=== PATIENT | male | born 1940 | race Caucasian/White ===

== ENCOUNTER 2018-05-21 09:53 | Inpatient (IN) | payer BC ==
[2018-05-21 11:11] LABS: #Eosinphils 0.3 thou/uL (0.0-0.7); #Lymphocytes 1.1 thou/uL (1.20-3.40); #Monocytes 1.1 thou/uL (0.11-0.59); #Neutrophils 7.7 thou/uL (1.40-6.50); %Basophils 0.5 % (0.0-1.0); %Eosinophils 3.1 % (0.0-10.0); %Lymphocytes 10.7 % (21.0-51.0); %Monocytes 11.1 % (0.0-10.0); %Neutrophils 74.7 % (42.0-75.0); Hemoglobin 13.9 g/dL (14.0-18.0); Mean Corpuscular HGB CONC 33.5 g/dL (32.0-36.0); Mean Corpuscular Hemoglobin 33.1 pg (27.0-31.0); Mean Corpuscular Volume 98.6 fL (78.0-98.0); Mean Platelet Volume 6.8 fL (7.4-10.4); Platelet Count 393 thou/uL (130-400); RBC Distribution Width 11.8 % (11.5-14.5); Red Blood Cell (RBC) Count 4.22 mill/uL (4.70-6.10); White Blood Cell (WBC) Count 10.3 thou/uL (4.8-10.8)
[2018-05-21 11:34] LABS: ALT (SGPT) 14 U/L (8-55); AST (SGOT) 16 U/L (5-34); Albumin 3.9 g/dL (3.4-4.8); Alkaline Phosphatase 111 U/L (40-150); Anion Gap 14 mmol/L (10-20); BUN (Urea Nitrogen) 17 mg/dL (8.4-25.7); Calc. Creatinine Clearance 0 mL/min (70-130); Calcium 9.8 mg/dL (7.8-10.44); Carbon Dioxide 24 mmol/L (23-31); Chloride 100 mmol/L (98-107); Estimated GFR-MDRD Greater than 90; Globulin 2.8 g/dL (2.4-3.5); Glucose 100 mg/dL (83-110); Potassium 4.1 mmol/L (3.5-5.1); Protein, Total 6.7 g/dL (5.8-8.1); Sodium 134 mmol/L (136-145)
--- NOTE | 2018-05-21 11:49 | ULT ---
ULTRASOUND LEFT LOWER EXTREMITY VENOUS DOPPLER: Date; 05/21/18 HISTORY: Left leg erythema. Edema. COMPARISON: None. TECHNIQUE: Real-time Diaz scale and color Doppler with spectral analysis of the left lower extremity venous sys tem was performed. The common femoral, femoral, proximal portions of greater saphenous and deep femor al veins, as well as the popliteal and posterior tibial veins are interrogated. FINDINGS: Normal flow, augmentation, and compression. IMPRESSION: No deep venous thrombosis. POS: MIREYA
[2018-05-21] MEDS ORDERED: Ondansetron ODT 4 MG TAB SL PRN (12:00)
[2018-05-21] MEDS ORDERED: Ondansetron PF 4 MG/2 ML Vial IVP PRN (12:00)
[2018-05-21] MEDS ORDERED: Acetaminophen 325 MG TAB PO PRN (12:00)
--- NOTE | 2018-05-21 12:03 | RAD ---
LEFT KNEE 4 VIEWS: Date: 05/21/18 HISTORY: Trauma. Pain. COMPARISON: None. FINDINGS: There is a lytic focus within a proximal tibial metadiaphysis. Severe degenerative change of the medi al compartment with a genu varus. Tricompartment osteophytes are present. Large joint effusion. IMPRESSION: 1. Large joint effusion, greater than expected for the amount of degenerative change, may reflect a nondisplaced or an impaction fracture versus internal derangement. 2. Subtle lytic focus within proximal tibial metadiaphysis. Further evaluation with and without cont rast may be beneficial. POS: MIREYA
[2018-05-21] MEDS ORDERED: cefTRIAXone\\ROCEPHIN 2 GM VIAL ONE (12:24)
[2018-05-21] MEDS ORDERED: Clindamycin/D5W 900 mg/50 ml Premix Bag ONE (12:42)
[2018-05-21 14:37] VITALS: BMI 29.6
[2018-05-21] MEDS ORDERED: traMADol HCl 50 MG TAB PO SCH (22:00)
[2018-05-21] MEDS ORDERED: Simvastatin 20 MG TAB PO SCH (22:00)
[2018-05-21] MEDS ORDERED: Zolpidem Tartrate 5 MG TAB PO SCH (22:00)
[2018-05-22] MEDS ORDERED: Enoxaparin Sodium 40 MG/0.4 ML SYRINGE SC SCH (06:00)
[2018-05-22] MEDS ORDERED: Clindamycin/D5W 300 MG/50 ML BAG IVPB SCH (06:00)
[2018-05-22 06:44] LABS: #Basophils 0.1 thou/uL (0.0-0.2); #Eosinphils 0.4 thou/uL (0.0-0.7); #Lymphocytes 1.4 thou/uL (1.20-3.40); #Neutrophils 5.1 thou/uL (1.40-6.50); %Basophils 0.7 % (0.0-1.0); %Eosinophils 5.1 % (0.0-10.0); %Lymphocytes 17.9 % (21.0-51.0); %Monocytes 12.8 % (0.0-10.0); %Neutrophils 63.5 % (42.0-75.0); Hemoglobin 12.7 g/dL (14.0-18.0); Mean Corpuscular HGB CONC 32.2 g/dL (32.0-36.0); Mean Corpuscular Hemoglobin 32.3 pg (27.0-31.0); Mean Platelet Volume 6.6 fL (7.4-10.4); Platelet Count 431 thou/uL (130-400); RBC Distribution Width 11.9 % (11.5-14.5); Red Blood Cell (RBC) Count 3.94 mill/uL (4.70-6.10)
[2018-05-22 07:04] LABS: Anion Gap 9 mmol/L (10-20); BUN (Urea Nitrogen) 21 mg/dL (8.4-25.7); Calc. Creatinine Clearance 99 mL/min (70-130); Calcium 9.5 mg/dL (7.8-10.44); Carbon Dioxide 31 mmol/L (23-31); Chloride 104 mmol/L (98-107); Estimated GFR-MDRD Greater than 90; Glucose 98 mg/dL (83-110); Sodium 140 mmol/L (136-145)
[2018-05-22] MEDS: Folic Acid 1 MG TAB PO SCH (08:31)
[2018-05-22] MEDS: traMADol HCl 50 MG TAB PO SCH ×3 (08:31→20:30)
[2018-05-22] MEDS: Lisinopril/Hydrochlorothiazide 10 mg/12.5 mg Tablet PO SCH (08:31)
[2018-05-22] MEDS: Cyanocobalamin (Vitamin B-12) 1,000 MCG TAB PO SCH (08:31)
--- NOTE | 2018-05-22 10:04 | CON ---
DATE OF CONSULTATION: 05/22/2018 CONSULTING PHYSICIAN: Jorge Ward MD REASON FOR CONSULTATION: Left knee cellulitis. HISTORY OF PRESENT ILLNESS: This is an 78-year-old gentleman, who presented to the Emergency Department last night for increasing redness of the left lower extremity. Upon further workup, the patient reported that he had lost his balance while stepping off a curb on and fell. At that time, he struck his left knee, left hand and face. He states that he has a known history of degenerative arthritis of the left knee and has been advised many years ago that he needs a total knee replacement. He states his knee was sore, but then he started to notice increasing redness over the last 4 days. He states that he does not have any significant pain with movement or walking. He has noticed an area of redness mainly over the front of his knee. He denies any numbness or tingling. He denies any recent fevers. He denies any drainage from any sites on his leg. He does report that he did scrape his leg several times when he fell on . PAST MEDICAL HISTORY: Significant for type 2 diabetes, hypertension, and an unknown cardiac arrhythmia. PAST SURGICAL HISTORY: Significant for cardiac ablation and appendectomy. SOCIAL HISTORY: The patient lives with family including grandson. He denies any smoking, alcohol, or illicit drug use. 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 FAMILY HISTORY: Reviewed and noncontributory. ALLERGIES: THE PATIENT STATES HE IS ALLERGIC TO AN ANTIBIOTIC, BUT HE IS UNSURE OF THE NAME. REVIEW OF SYSTEMS: A 10-point review of systems conducted and otherwise negative except for stated above. PHYSICAL EXAMINATION: VITAL SIGNS: Shows vital signs; temperature 97.7, pulse of 80, respiratory rate of 18, and blood pressure 126/59. GENERAL: The patient is awake and alert. He is in no apparent distress. He is resting comfortably in bed. He is appropriate with exam today. No family is currently at bedside. HEENT: Head, normocephalic and atraumatic. NECK: Supple. Trachea midline. LUNGS: Breathing nonlabored. EXTREMITIES: The left lower extremity was evaluated. There is erythema with some soft tissue swelling prominent over the prepatellar bursa region. This does not extend over the entire knee itself. It does extend distally into the lower leg. The lower leg has been wrapped with Coban and Kerlix. The patient is able to move his toes distally. He is also able to actively range his knee both flexion and extension without any difficulty. The patient has approximately 2+ knee effusion. He is exquisitely tender over the prepatellar bursa region. Remainder of extremity exam otherwise unremarkable. IMAGING SECTION: Radiographs including views of the left knee show evidence of degenerative changes in the left knee. There is evidence of a knee effusion. No acute fractures are visualized. LABORATORY DATA: Lab results reviewed including a CBC show a white blood cell count of 8.0, of note, this was 10.3 upon admission. Hemoglobin 12.7, hematocrit 39.5 , and platelet count of 431. ESR 32. ASSESSMENT: Left knee prepatellar bursitis. PLAN: At this time, I have discussed with the patient at bedside regarding IV antibiotic treatment and likelihood of I and D. We can recheck him in the morning to see if this area has improved; if it has not, we will need to go forward with an I and D of the left prepatellar bursitis to eradicate the infection. This will then be followed by a course of IV antibiotics. The patient seems hesitant toward this. He states he has classes coming up that are resuming in a couple days and he would like to go home. He does understand the importance of this procedure. We will make him n.p.o. at midnight. Risks, benefits, and alternatives discussed with the patient. He is amenable to the plan of care discussed as above. Thank you for this consultation. Job ID: [id number] [facility]
--- NOTE | 2018-05-22 10:19 | PDOC.PN ---
- Subjective Encounter Start Date: 05/22/18 Encounter Start Time: 07:20 -: old records requested/rev Patient seen and examined. No new complaints. No overnight events pt has left knee swelling and pain, - Objective Resuscitation Status - Order Detail: 05/22/18 05:47 Resuscitation Status Routine Resuscitation Status: FULL: Full Resuscitation MAR Reviewed: Yes Vital Signs & Weight: Vital Signs (12 hours) Temp Pulse Resp BP Pulse Ox 05/22/18 07:56 97.7 F 80 18 126/59 L 95 05/22/18 04:03 98.7 F 78 20 102/50 L 93 L Weight Weight 206 lb 6.4 oz I&O: 05/21/18 05/22/18 05/23/18 06:59 06:59 06:59 Intake Total 1000 Balance 1000 Result Diagrams: 05/22/18 06:33 05/22/18 06:33 Radiology Reviewed by me: Yes (knee xray reviewed) Phys Exam - Physical Examination Constitutional: NAD HEENT: PERRLA, moist MMs, sclera anicteric Neck: no JVD, supple Respiratory: no wheezing, no rales, no rhonchi Cardiovascular: RRR, no significant murmur, no rub Gastrointestinal: soft, non-tender, no distention, positive bowel sounds left knee swelling, left leg erythema Neurological: non-focal, normal sensation, moves all 4 limbs Lymphatic: no nodes Psychiatric: normal affect, A&O x 3 Skin: no rash, normal turgor Dx/Plan (1) Prepatellar bursitis of left knee Code(s): M70.42 - PREPATELLAR BURSITIS, LEFT KNEE Status: Acute (2) Cellulitis of left leg Code(s): L03.116 - CELLULITIS OF LEFT LOWER LIMB Status: Acute (3) Knee effusion, left Code(s): M25.462 - EFFUSION, LEFT KNEE Status: Acute (4) Lytic lesion of bone on x-ray Code(s): M89.9 - DISORDER OF BONE, UNSPECIFIED Status: Acute (5) Diabetes type 2, controlled Code(s): E11.9 - TYPE 2 DIABETES MELLITUS WITHOUT COMPLICATIONS Status: Chronic (6) Dyslipidemia Code(s): E78.5 - HYPERLIPIDEMIA, UNSPECIFIED Status: Chronic (7) Hypertension Code(s): I10 - ESSENTIAL (PRIMARY) HYPERTENSION Status: Chronic (8) Macrocytic anemia Code(s): D53.9 - NUTRITIONAL ANEMIA, UNSPECIFIED Status: Chronic - Plan cont current plan of care, continue antibiotics * change to inpt * transfer to orthopedic floor * continue rocephin and clindamycin * will need surgery tomorrow * pain control * wound care after surgery * uric acid is normal * consulted ortho and spoke with them * medication reviewed as below * symptomatic treatment. Review of Systems - Review of Systems Eyes: negative: Pain, Vision Change, Conjunctivae Inflammation, Eyelid Inflammation, Redness, Other ENT: negative: Ear Pain, Ear Discharge, Nose Pain, Nose Discharge, Nose Congestion, Mouth Pain, Mouth Swelling, Throat Pain, Throat Swelling, Other Respiratory: negative: Cough, Dry, Shortness of Breath, Hemoptysis, SOB with Excertion, Pleuritic Pain, Sputum, Wheezing Cardiovascular: negative: chest pain, palpitations, orthopnea, paroxysmal nocturnal dyspnea, edema, light headedness, other Gastrointestinal: negative: Nausea, Vomiting, Abdominal Pain, Diarrhea, Constipation, Melena, Hematochezia, Other Genitourinary: negative: Dysuria, Frequency, Incontinence, Hematuria, Retention , Other Musculoskeletal: Leg Pain. negative: Neck Pain, Shoulder Pain, Arm Pain, Back Pain, Hand Pain, Foot Pain, Other - Medications/Allergies Allergies/Adverse Reactions: Allergies Allergy/AdvReac Type Severity Reaction Status Date / Time ciprofloxacin [From Cipro] Allergy Verified 05/21/18 14:46 latex Allergy Verified 05/21/18 14:46 Medications: Current Medications Clindamycin Phosphate/Dextrose (Cleocin) 900 mg IVPB Q6HR [facility] Last Admin: 05/22/18 06:11 Dose: 900 mg Cyanocobalamin (Vitamin B-12) 1,000 mcg PO DAILY [facility] Last Admin: 05/22/18 08:31 Dose: 1,000 mcg Folic Acid (Folvite) 1 mg PO DAILY [facility] Last Admin: 05/22/18 08:31 Dose: 1 mg Lisinopril/HCTZ (Prinizide 10-12.5) 1 tab PO DAILY [facility] Last Admin: 05/22/18 08:31 Dose: 1 tab Ceftriaxone Sodium 2 gm/ (Sodium Chloride) 100 mls @ 200 mls/hr IVPB 1200 [facility] Simvastatin (Zocor) 10 mg PO HS [facility] Tramadol HCl (Ultram) 50 mg PO TID [facility] Last Admin: 05/22/18 08:31 Dose: 50 mg Zolpidem Tartrate (Ambien) 10 mg PO JULIANA
[2018-05-22] MEDS ORDERED: Sodium Chloride 0.65% Nasal 44 ML BOT EA NARE PRN (11:15)
[2018-05-22] MEDS ORDERED: Senokot S 8.6-50 MG TAB PO PRN (11:15)
[2018-05-22] MEDS ORDERED: hydrALAZINE 20 MG/ML VIAL SLOW IVP PRN (11:15)
[2018-05-22] MEDS ORDERED: Loperamide HCl 2 MG CAP PO PRN (11:15)
[2018-05-22] MEDS ORDERED: Cepastat Lozenges 1 LOZ PO PRN (11:15)
[2018-05-22] MEDS ORDERED: Eucerin (Mineral Oil/Petrolatum,White) 30 gm Jar TOP PRN (11:15)
[2018-05-22] MEDS ORDERED: HYDROcodone/Acetaminophen 5/325 mg Tablet PO PRN (11:15)
[2018-05-22] MEDS ORDERED: Bisacodyl 5 MG TAB PO PRN (11:15)
[2018-05-22] MEDS ORDERED: Artificial Tears 18 DROP/0.9 ML EA EYE PRN (11:15)
[2018-05-22] MEDS ORDERED: Loratadine 10 MG TAB PO PRN (11:15)
[2018-05-22] MEDS ORDERED: Diabetic Tussin 200 MG/10 ML UDCUP PO PRN (11:15)
[2018-05-22] MEDS ORDERED: Calcium Carbonate 500 MG ChewTAB PO PRN (11:15)
[2018-05-22] MEDS ORDERED: Ondansetron ODT 4 MG TAB PO PRN (11:16)
[2018-05-22] MEDS ORDERED: Ondansetron PF 4 MG/2 ML Vial IVP PRN (11:16)
[2018-05-22] MEDS ORDERED: Ketorolac Tromethamine 30 MG/ML VIAL IVP PRN (11:17)
[2018-05-22] MEDS ORDERED: Morphine 2 MG/ML SYRINGE SLOW IVP PRN (11:27)
[2018-05-22] MEDS: Clindamycin/D5W 900 mg/50 ml Premix Bag IVPB SCH ×3 (11:42→23:42)
[2018-05-22] MEDS: cefTRIAXone\\ROCEPHIN 2 GM in Sodium Chloride 0.9% 100 ML IVPB SCH (12:44)
--- NOTE | 2018-05-22 14:41 | HP ---
PRIMARY CARE PHYSICIAN: Out of town. TIME OF SERVICE: 1530 hours. CHIEF COMPLAINT: Left leg swelling. HISTORY OF PRESENT ILLNESS: Mr. Huang is a pleasant 78-year-old white male with history of tachyarrhythmias, diabetes, hypertension, who presented to the emergency department with complaints of left leg swelling and pain. about 10 days prior to presentation, and he got some progressive swelling into his left lower extremity [id number]. It got more painful, red, hot today and so he came into the emergency department for evaluation. Workup there revealed a white count that was normal, labs were normal, but certainly leg looks like it was infected, so we were subsequently called for admission. PAST MEDICAL HISTORY: 1. Tachyarrhythmias. 2. Diabetes mellitus type 2, non-insulin dependent. 3. Hypertension. PAST SURGICAL HISTORY: Includes appendectomy. HOME MEDICATIONS: 1. Lisinopril/hydrochlorothiazide 10/12.5 p.o. daily. 2. Zocor 10 mg p.o. at bedtime. 3. Tramadol 50 mg p.o. t.i.d. p.r.n. 4. Ambien at bedtime. ALLERGIES: CIPRO AND LATEX. FAMILY HISTORY: Negative for clotting or bleeding disorders, no immune dysfunction. SOCIAL HISTORY: Negative habits x3. REVIEW OF SYSTEMS: Negative for all systems except as per HPI. All systems were reviewed. PHYSICAL EXAMINATION: VITAL SIGNS: Temperature 98.7, pulse 78, blood pressure 95/54, respiratory rate 16, and satting 97% on room air. GENERAL: He is awake. He is alert. He is oriented x3. Well-developed, well-nourished white male, appears to be in no distress. HEENT: Normocephalic and atraumatic. Pupils are equal, round, and reactive to light bilaterally. Mucous membranes are moist. No visible lesions and no thrush. NECK: Supple. There is no lymphadenopathy, no JVD, and no thyromegaly. He has normal carotid upstroke. I do not appreciate bruits. LUNGS: Clear. No wheezes, no rales, no rhonchi. He had no prolonged expiratory phase. Good air movement and symmetric chest excursion. CARDIOVASCULAR: He has normal cardiac and regular. Normal S1 and S2. I do not appreciate any significant murmurs. ABDOMEN: Soft, nontender, nondistended. No masses. No organomegaly. EXTREMITIES: No cyanosis, no clubbing. He has edema of the left lower extremity below the knee, approximately 2 to 3+, exquisitely tender, hot, red, and tender to palpation. He does have mycosis and some scrapes above the knee. Otherwise, no other lesions. NEUROLOGIC: Cranial nerves 2 through 12 are grossly intact. He has no focal deficits, normal speech and 5/5 strength in all four extremities. LABORATORY DATA: Sodium 134, potassium 4.1, chloride 100, bicarb is 24, BUN 17, creatinine 0.78, glucose 100, and calcium is 9.8. LFTs within normal limits. CBC showed white count of 10.3, hemoglobin is 13.9, hematocrit is 41.6, platelet count is . CRP elevated at 4.18 and sedimentation rate slightly elevated at 32. IMAGING STUDIES: Reviewed. ASSESSMENT AND PLAN: 1. Left lower extremity cellulitis. It appears to be streptococcal. We placed him on clindamycin for 72 hours plus Rocephin daily. I will elevate and depress the leg and re-evaluate in the morning. The patient is very anxious about wanting to go home. If his pain is well controlled, his morning labs look good and he has tolerated the antibiotic, could likely be switched to oral Keflex 500 mg p.o. q.i.d. plus clindamycin 300 mg t.i.d. to finish out his 72-hour course. The Keflex was continued for 10 to 14 days. 2. Diabetes mellitus type 2, but has been placed on diabetic diet. He is not currently on any medicines for his diabetes. 3. Hypertension. He is on medications. History of tachyarrhythmias. [facility] Job ID: [id number]
[2018-05-22] MEDS: Zolpidem Tartrate 5 MG TAB PO SCH (20:30)
[2018-05-22] MEDS: Simvastatin 20 MG TAB PO SCH (20:32)
[2018-05-23] MEDS: Clindamycin/D5W 900 mg/50 ml Premix Bag IVPB SCH ×4 (06:13→23:48)
[2018-05-23 07:30] LABS: #Basophils 0.1 thou/uL (0.0-0.2); #Eosinphils 0.5 thou/uL (0.0-0.7); #Lymphocytes 1.1 thou/uL (1.20-3.40); #Monocytes 0.9 thou/uL (0.11-0.59); #Neutrophils 4.9 thou/uL (1.40-6.50); %Eosinophils 6.6 % (0.0-10.0); %Lymphocytes 14.7 % (21.0-51.0); %Monocytes 11.6 % (0.0-10.0); Hemoglobin 13.2 g/dL (14.0-18.0); Mean Corpuscular HGB CONC 33.6 g/dL (32.0-36.0); Mean Corpuscular Hemoglobin 33.4 pg (27.0-31.0); Mean Corpuscular Volume 99.4 fL (78.0-98.0); Mean Platelet Volume 6.8 fL (7.4-10.4); Platelet Count 419 thou/uL (130-400); RBC Distribution Width 11.8 % (11.5-14.5); Red Blood Cell (RBC) Count 3.94 mill/uL (4.70-6.10); White Blood Cell (WBC) Count 7.4 thou/uL (4.8-10.8)
[2018-05-23 07:42] LABS: Anion Gap 13 mmol/L (10-20); BUN (Urea Nitrogen) 15 mg/dL (8.4-25.7); Calc. Creatinine Clearance 99 mL/min (70-130); Calcium 9.5 mg/dL (7.8-10.44); Carbon Dioxide 27 mmol/L (23-31); Chloride 102 mmol/L (98-107); Estimated GFR-MDRD Greater than 90; Glucose 103 mg/dL (83-110); Sodium 138 mmol/L (136-145)
[2018-05-23] MEDS: Saccharomyces boulardii 250 MG CAP PO SCH (09:40)
[2018-05-23] MEDS: Cyanocobalamin (Vitamin B-12) 1,000 MCG TAB PO SCH (09:40)
[2018-05-23] MEDS: traMADol HCl 50 MG TAB PO SCH ×3 (09:41→21:23)
[2018-05-23] MEDS: Folic Acid 1 MG TAB PO SCH (09:41)
--- NOTE | 2018-05-23 11:11 | PDOC.PN ---
- Subjective Encounter Start Date: 05/23/18 Encounter Start Time: 08:20 Patient seen and examined. No new complaints. No overnight events - Objective Resuscitation Status - Order Detail: 05/22/18 05:47 Resuscitation Status Routine Resuscitation Status: FULL: Full Resuscitation MAR Reviewed: Yes Vital Signs & Weight: Vital Signs (12 hours) Temp Pulse Resp BP Pulse Ox 05/23/18 08:00 98.0 F 68 20 103/63 94 L 05/23/18 03:57 98.2 F 70 18 100/63 94 L 05/22/18 23:49 98.3 F 65 18 97/54 L 96 Weight Weight 206 lb 6.4 oz I&O: 05/22/18 05/23/18 05/24/18 06:59 06:59 06:59 Intake Total 1000 50 Balance 1000 50 Result Diagrams: 05/23/18 07:01 05/23/18 07:01 Phys Exam - Physical Examination Constitutional: NAD HEENT: PERRLA, moist MMs, sclera anicteric Neck: no JVD, supple Respiratory: no wheezing, no rales, no rhonchi Cardiovascular: RRR, no significant murmur, no rub Gastrointestinal: soft, non-tender, no distention, positive bowel sounds left leg cellulitis improving Neurological: non-focal, normal sensation, moves all 4 limbs Lymphatic: no nodes Psychiatric: normal affect, A&O x 3 Skin: no rash, normal turgor Dx/Plan (1) Prepatellar bursitis of left knee Code(s): M70.42 - PREPATELLAR BURSITIS, LEFT KNEE Status: Acute (2) Cellulitis of left leg Code(s): L03.116 - CELLULITIS OF LEFT LOWER LIMB Status: Acute (3) Knee effusion, left Code(s): M25.462 - EFFUSION, LEFT KNEE Status: Acute (4) Lytic lesion of bone on x-ray Code(s): M89.9 - DISORDER OF BONE, UNSPECIFIED Status: Acute (5) Diabetes type 2, controlled Code(s): E11.9 - TYPE 2 DIABETES MELLITUS WITHOUT COMPLICATIONS Status: Chronic (6) Dyslipidemia Code(s): E78.5 - HYPERLIPIDEMIA, UNSPECIFIED Status: Chronic (7) Hypertension Code(s): I10 - ESSENTIAL (PRIMARY) HYPERTENSION Status: Chronic (8) Macrocytic anemia Code(s): D53.9 - NUTRITIONAL ANEMIA, UNSPECIFIED Status: Chronic - Plan cont current plan of care, continue antibiotics * with iv antibiotic, pt has improvement, at this point as per ortho will hold on surgery, will continue current iv antibiotics and follow culture * medication reviewed as below * symptomatic treatment * pain controlled * discussed with ortho. Review of Systems - Review of Systems Eyes: negative: Pain, Vision Change, Conjunctivae Inflammation, Eyelid Inflammation, Redness, Other Respiratory: negative: Cough, Dry, Shortness of Breath, Hemoptysis, SOB with Excertion, Pleuritic Pain, Sputum, Wheezing Cardiovascular: negative: chest pain, palpitations, orthopnea, paroxysmal nocturnal dyspnea, edema, light headedness, other Gastrointestinal: negative: Nausea, Vomiting, Abdominal Pain, Diarrhea, Constipation, Melena, Hematochezia, Other Genitourinary: negative: Dysuria, Frequency, Incontinence, Hematuria, Retention , Other Musculoskeletal: Leg Pain. negative: Neck Pain, Shoulder Pain, Arm Pain, Back Pain, Hand Pain, Foot Pain, Other - Medications/Allergies Allergies/Adverse Reactions: Allergies Allergy/AdvReac Type Severity Reaction Status Date / Time ciprofloxacin [From Cipro] Allergy Verified 05/21/18 14:46 latex Allergy Verified 05/21/18 14:46 Medications: Current Medications Hydrocodone Bitart/Acetaminophen ([place] 5/325) 1 tab PO Q4H PRN PRN Reason: Moderate Pain (4-6) Artificial Tears (Tears Naturale) 2 drop EA EYE PRN PRN PRN Reason: Dry Eyes Bisacodyl (Dulcolax) 10 mg PO DAILYPRN PRN PRN Reason: Constipation Calcium Carbonate (Tums) 1,000 mg PO Q4H PRN PRN Reason: Heartburn or Indigestion Clindamycin Phosphate/Dextrose (Cleocin) 900 mg IVPB Q6HR [facility] Last Admin: 05/23/18 06:13 Dose: 900 mg Cyanocobalamin (Vitamin B-12) 1,000 mcg PO DAILY [facility] Last Admin: 05/23/18 09:40 Dose: 1,000 mcg Folic Acid (Folvite) 1 mg PO DAILY [facility] Last Admin: 05/23/18 09:41 Dose: 1 mg Guaifenesin (Robitussin Sf) 200 mg PO Q4H PRN PRN Reason: Cough Lisinopril/HCTZ (Prinizide 10-12.5) 1 tab PO DAILY [facility] Last Admin: 05/22/18 08:31 Dose: 1 tab Hydralazine HCl (Apresoline) 10 mg SLOW IVP Q4H PRN PRN Reason: SBP > 180 and HR < 70 Ceftriaxone Sodium 2 gm/ (Sodium Chloride) 100 mls @ 200 mls/hr IVPB 1200 [facility] Last Admin: 05/22/18 12:44 Dose: 100 mls Ketorolac Tromethamine (Toradol) 15 mg IVP Q6H PRN PRN Reason: Mild-Moderate Pain (1-5) Stop: 05/27/18 11:18 Loperamide HCl (Imodium) 2 mg PO PRN PRN PRN Reason: Diarrhea/Loose Stools Loratadine (Claritin) 10 mg PO DAILYPRN PRN PRN Reason: Sinus Symptoms Mineral Oil/White Petrolatum (Eucerin Cream) 0 gm TOP BIDPRN PRN PRN Reason: Dry Skin Morphine Sulfate (Morphine) 2 mg SLOW IVP Q4H PRN PRN Reason: BREAKTHROUGH OR SEVERE PAIN Ondansetron HCl (Zofran Odt) 4 mg PO Q6H PRN PRN Reason: Nausea/Vomiting Ondansetron HCl (Zofran) 4 mg IVP Q6H PRN PRN Reason: Nausea/Vomiting Saccharomyces Boulardii (Florastor) 250 mg PO DAILY [facility] Last Admin: 05/23/18 09:40 Dose: 250 mg Senna/Docusate Sodium (Senokot S) 2 tab PO BID PRN PRN Reason: Constipation Simvastatin (Zocor) 10 mg PO [facility] Last Admin: 05/22/18 20:32 Dose: 10 mg Sodium Chloride ([place] Nasal [place] 0.65%) 0 ml EA NARE QIDPRN PRN PRN Reason: Nasal Congestion Throat Lozenges (Cepastat Lozenges) 1 mallorie PO Q2H PRN PRN Reason: Sore Throat Tramadol HCl (Ultram) 50 mg PO TID [facility] Last Admin: 05/23/18 09:41 Dose: 50 mg Zolpidem Tartrate (Ambien) 10 mg PO [facility] Last Admin: 05/22/18 20:30 Dose: 10 mg
[2018-05-23] MEDS: Lisinopril/Hydrochlorothiazide 10 mg/12.5 mg Tablet PO SCH (12:50)
[2018-05-23] MEDS: cefTRIAXone\\ROCEPHIN 2 GM in Sodium Chloride 0.9% 100 ML IVPB SCH (13:25)
[2018-05-23] MEDS: Simvastatin 20 MG TAB PO SCH (21:22)
[2018-05-23] MEDS: Zolpidem Tartrate 5 MG TAB PO SCH (21:22)
[2018-05-24] MEDS: Clindamycin/D5W 900 mg/50 ml Premix Bag IVPB SCH ×4 (05:14→23:19)
[2018-05-24] MEDS: Folic Acid 1 MG TAB PO SCH (09:06)
[2018-05-24] MEDS: traMADol HCl 50 MG TAB PO SCH ×3 (09:06→20:17)
[2018-05-24] MEDS: Cyanocobalamin (Vitamin B-12) 1,000 MCG TAB PO SCH (09:07)
[2018-05-24] MEDS: Saccharomyces boulardii 250 MG CAP PO SCH (09:07)
[2018-05-24] MEDS: Lisinopril/Hydrochlorothiazide 10 mg/12.5 mg Tablet PO SCH (11:00)
[2018-05-24] MEDS: cefTRIAXone\\ROCEPHIN 2 GM in Sodium Chloride 0.9% 100 ML IVPB SCH (11:35)
--- NOTE | 2018-05-24 13:28 | PDOC.PN ---
- Subjective Encounter Start Date: 05/24/18 Encounter Start Time: 08:45 Patient seen and examined. No new complaints. No overnight events pt still has left leg redness and swelling around left knee, no significant improvement - Objective Resuscitation Status - Order Detail: 05/22/18 05:47 Resuscitation Status Routine Resuscitation Status: FULL: Full Resuscitation MAR Reviewed: Yes Vital Signs & Weight: Vital Signs (12 hours) Temp Pulse Resp BP BP Pulse Ox 05/24/18 12:00 98.0 F 68 16 99/59 L 94 L 05/24/18 11:00 72 119/73 05/24/18 08:00 97.9 F 72 18 119/73 96 05/24/18 04:50 98.5 F 65 16 101/58 L 95 Weight Weight 206 lb 6.4 oz I&O: 05/23/18 05/24/18 05/25/18 06:59 06:59 06:59 Intake Total 50 Balance 50 Result Diagrams: 05/23/18 07:01 05/23/18 07:01 Phys Exam - Physical Examination Constitutional: NAD HEENT: PERRLA, moist MMs, sclera anicteric Neck: no JVD, supple Respiratory: no wheezing, no rales, no rhonchi Cardiovascular: RRR, no significant murmur, no rub Gastrointestinal: soft, non-tender, no distention, positive bowel sounds left knee swelling and cellulitis remained same Neurological: non-focal, normal sensation, moves all 4 limbs Lymphatic: no nodes Psychiatric: normal affect, A&O x 3 Skin: no rash, normal turgor Dx/Plan (1) Prepatellar bursitis of left knee Code(s): M70.42 - PREPATELLAR BURSITIS, LEFT KNEE Status: Acute (2) Cellulitis of left leg Code(s): L03.116 - CELLULITIS OF LEFT LOWER LIMB Status: Acute (3) Knee effusion, left Code(s): M25.462 - EFFUSION, LEFT KNEE Status: Acute (4) Lytic lesion of bone on x-ray Code(s): M89.9 - DISORDER OF BONE, UNSPECIFIED Status: Acute (5) Diabetes type 2, controlled Code(s): E11.9 - TYPE 2 DIABETES MELLITUS WITHOUT COMPLICATIONS Status: Chronic (6) Dyslipidemia Code(s): E78.5 - HYPERLIPIDEMIA, UNSPECIFIED Status: Chronic (7) Hypertension Code(s): I10 - ESSENTIAL (PRIMARY) HYPERTENSION Status: Chronic (8) Macrocytic anemia Code(s): D53.9 - NUTRITIONAL ANEMIA, UNSPECIFIED Status: Chronic - Plan cont current plan of care, continue antibiotics * currently on empiric antibiotic treatment, so far not significant response * without surgical intervention, pt and me concerned about another admission in near future if not improvement * will ask ortho to evaluate for any need of surgery * pain controlled * medication reviewed as below * symptomatic treatment. Review of Systems - Review of Systems Constitutional: negative: fever, chills, sweats, weakness, malaise, other ENT: negative: Ear Pain, Ear Discharge, Nose Pain, Nose Discharge, Nose Congestion, Mouth Pain, Mouth Swelling, Throat Pain, Throat Swelling, Other Respiratory: negative: Cough, Dry, Shortness of Breath, Hemoptysis, SOB with Excertion, Pleuritic Pain, Sputum, Wheezing Cardiovascular: negative: chest pain, palpitations, orthopnea, paroxysmal nocturnal dyspnea, edema, light headedness, other Gastrointestinal: negative: Nausea, Vomiting, Abdominal Pain, Diarrhea, Constipation, Melena, Hematochezia, Other Genitourinary: negative: Dysuria, Frequency, Incontinence, Hematuria, Retention , Other Musculoskeletal: Leg Pain. negative: Neck Pain, Shoulder Pain, Arm Pain, Back Pain, Hand Pain, Foot Pain, Other - Medications/Allergies Allergies/Adverse Reactions: Allergies Allergy/AdvReac Type Severity Reaction Status Date / Time ciprofloxacin [From Cipro] Allergy Verified 05/21/18 14:46 latex Allergy Verified 05/21/18 14:46 Medications: Current Medications Hydrocodone Bitart/Acetaminophen ([place] 5/325) 1 tab PO Q4H PRN PRN Reason: Moderate Pain (4-6) Artificial Tears (Tears Naturale) 2 drop EA EYE PRN PRN PRN Reason: Dry Eyes Bisacodyl (Dulcolax) 10 mg PO DAILYPRN PRN PRN Reason: Constipation Calcium Carbonate (Tums) 1,000 mg PO Q4H PRN PRN Reason: Heartburn or Indigestion Clindamycin Phosphate/Dextrose (Cleocin) 900 mg IVPB Q6HR [facility] Last Admin: 05/24/18 12:41 Dose: 900 mg Cyanocobalamin (Vitamin B-12) 1,000 mcg PO DAILY [facility] Last Admin: 05/24/18 09:07 Dose: 1,000 mcg Folic Acid (Folvite) 1 mg PO DAILY [facility] Last Admin: 05/24/18 09:06 Dose: 1 mg Guaifenesin (Robitussin Sf) 200 mg PO Q4H PRN PRN Reason: Cough Lisinopril/HCTZ (Prinizide 10-12.5) 1 tab PO DAILY [facility] Last Admin: 05/24/18 11:00 Dose: 1 tab Hydralazine HCl (Apresoline) 10 mg SLOW IVP Q4H PRN PRN Reason: SBP > 180 and HR < 70 Ceftriaxone Sodium 2 gm/ (Sodium Chloride) 100 mls @ 200 mls/hr IVPB 1200 [facility] Last Admin: 05/24/18 11:35 Dose: 100 mls Ketorolac Tromethamine (Toradol) 15 mg IVP Q6H PRN PRN Reason: Mild-Moderate Pain (1-5) Stop: 05/27/18 11:18 Loperamide HCl (Imodium) 2 mg PO PRN PRN PRN Reason: Diarrhea/Loose Stools Loratadine (Claritin) 10 mg PO DAILYPRN PRN PRN Reason: Sinus Symptoms Mineral Oil/White Petrolatum (Eucerin Cream) 0 gm TOP BIDPRN PRN PRN Reason: Dry Skin Morphine Sulfate (Morphine) 2 mg SLOW IVP Q4H PRN PRN Reason: BREAKTHROUGH OR SEVERE PAIN Ondansetron HCl (Zofran Odt) 4 mg PO Q6H PRN PRN Reason: Nausea/Vomiting Ondansetron HCl (Zofran) 4 mg IVP Q6H PRN PRN Reason: Nausea/Vomiting Saccharomyces Boulardii (Florastor) 250 mg PO DAILY [facility] Last Admin: 05/24/18 09:07 Dose: 250 mg Senna/Docusate Sodium (Senokot S) 2 tab PO BID PRN PRN Reason: Constipation Simvastatin (Zocor) 10 mg PO HS [facility] Last Admin: 05/23/18 21:22 Dose: 10 mg Sodium Chloride ([place] Nasal [place] 0.65%) 0 ml EA NARE QIDPRN PRN PRN Reason: Nasal Congestion Throat Lozenges (Cepastat Lozenges) 1 mallorie PO Q2H PRN PRN Reason: Sore Throat Tramadol HCl (Ultram) 50 mg PO TID [facility] Last Admin: 05/24/18 09:06 Dose: 50 mg Zolpidem Tartrate (Ambien) 10 mg PO [facility] Last Admin: 05/23/18 21:22 Dose: 10 mg
[2018-05-24] MEDS: Simvastatin 20 MG TAB PO SCH (20:16)
[2018-05-24] MEDS: Zolpidem Tartrate 5 MG TAB PO SCH (21:44)
[2018-05-25] MEDS: Clindamycin/D5W 900 mg/50 ml Premix Bag IVPB SCH ×4 (05:02→23:39)
[2018-05-25] MEDS: Cyanocobalamin (Vitamin B-12) 1,000 MCG TAB PO SCH (08:43)
[2018-05-25] MEDS: Saccharomyces boulardii 250 MG CAP PO SCH (08:44)
[2018-05-25] MEDS: Folic Acid 1 MG TAB PO SCH (08:44)
[2018-05-25] MEDS: traMADol HCl 50 MG TAB PO SCH ×3 (08:44→21:45)
[2018-05-25] MEDS: Lisinopril/Hydrochlorothiazide 10 mg/12.5 mg Tablet PO SCH (08:47)
[2018-05-25] MEDS: cefTRIAXone\\ROCEPHIN 2 GM in Sodium Chloride 0.9% 100 ML IVPB SCH (11:41)
--- NOTE | 2018-05-25 13:36 | PDOC.PN ---
- Subjective Encounter Start Date: 05/25/18 Encounter Start Time: 08:30 Patient seen and examined. No new complaints. No overnight events - Objective Resuscitation Status - Order Detail: 05/22/18 05:47 Resuscitation Status Routine Resuscitation Status: FULL: Full Resuscitation MAR Reviewed: Yes Vital Signs & Weight: Vital Signs (12 hours) Temp Pulse Resp BP Pulse Ox 05/25/18 11:08 97.3 F L 92 18 108/66 97 05/25/18 08:47 73 05/25/18 07:35 98.2 F 73 18 126/72 94 L 05/25/18 04:40 97.9 F 55 L 20 100/51 L 95 Weight Weight 206 lb 6.4 oz I&O: 05/24/18 05/25/18 05/26/18 06:59 06:59 06:59 Intake Total 1050 360 Balance 1050 360 Result Diagrams: 05/23/18 07:01 05/23/18 07:01 Phys Exam - Physical Examination Constitutional: NAD HEENT: PERRLA, moist MMs, sclera anicteric Neck: no JVD, supple Respiratory: no wheezing, no rales, no rhonchi Cardiovascular: RRR, no significant murmur, no rub Gastrointestinal: soft, non-tender, no distention, positive bowel sounds left leg cellulitis, bursitis Neurological: non-focal, normal sensation, moves all 4 limbs Lymphatic: no nodes Psychiatric: normal affect, A&O x 3 Skin: no rash, normal turgor Dx/Plan (1) Prepatellar bursitis of left knee Code(s): M70.42 - PREPATELLAR BURSITIS, LEFT KNEE Status: Acute (2) Cellulitis of left leg Code(s): L03.116 - CELLULITIS OF LEFT LOWER LIMB Status: Acute (3) Knee effusion, left Code(s): M25.462 - EFFUSION, LEFT KNEE Status: Acute (4) Lytic lesion of bone on x-ray Code(s): M89.9 - DISORDER OF BONE, UNSPECIFIED Status: Acute (5) Diabetes type 2, controlled Code(s): E11.9 - TYPE 2 DIABETES MELLITUS WITHOUT COMPLICATIONS Status: Chronic (6) Dyslipidemia Code(s): E78.5 - HYPERLIPIDEMIA, UNSPECIFIED Status: Chronic (7) Hypertension Code(s): I10 - ESSENTIAL (PRIMARY) HYPERTENSION Status: Chronic (8) Macrocytic anemia Code(s): D53.9 - NUTRITIONAL ANEMIA, UNSPECIFIED Status: Chronic - Plan cont current plan of care, continue antibiotics * ortho to decide today if any need for I & D * continue current iv antibiotics * medication reviewed as below * symptomatic treatment. Review of Systems - Review of Systems ENT: negative: Ear Pain, Ear Discharge, Nose Pain, Nose Discharge, Nose Congestion, Mouth Pain, Mouth Swelling, Throat Pain, Throat Swelling, Other Respiratory: negative: Cough, Dry, Shortness of Breath, Hemoptysis, SOB with Excertion, Pleuritic Pain, Sputum, Wheezing Cardiovascular: negative: chest pain, palpitations, orthopnea, paroxysmal nocturnal dyspnea, edema, light headedness, other Gastrointestinal: negative: Nausea, Vomiting, Abdominal Pain, Diarrhea, Constipation, Melena, Hematochezia, Other Genitourinary: negative: Dysuria, Frequency, Incontinence, Hematuria, Retention , Other Musculoskeletal: negative: Neck Pain, Shoulder Pain, Arm Pain, Back Pain, Hand Pain, Leg Pain, Foot Pain, Other Skin: negative: Rash, Lesions, Pasquale, Bruising, Other - Medications/Allergies Allergies/Adverse Reactions: Allergies Allergy/AdvReac Type Severity Reaction Status Date / Time ciprofloxacin [From Cipro] Allergy Verified 05/21/18 14:46 latex Allergy Verified 05/21/18 14:46 Medications: Current Medications Hydrocodone Bitart/Acetaminophen ([place] 5/325) 1 tab PO Q4H PRN PRN Reason: Moderate Pain (4-6) Artificial Tears (Tears Naturale) 2 drop EA EYE PRN PRN PRN Reason: Dry Eyes Bisacodyl (Dulcolax) 10 mg PO DAILYPRN PRN PRN Reason: Constipation Calcium Carbonate (Tums) 1,000 mg PO Q4H PRN PRN Reason: Heartburn or Indigestion Clindamycin Phosphate/Dextrose (Cleocin) 900 mg IVPB Q6HR [facility] Last Admin: 05/25/18 11:49 Dose: 900 mg Cyanocobalamin (Vitamin B-12) 1,000 mcg PO DAILY [facility] Last Admin: 05/25/18 08:43 Dose: 1,000 mcg Folic Acid (Folvite) 1 mg PO DAILY [facility] Last Admin: 05/25/18 08:44 Dose: 1 mg Guaifenesin (Robitussin Sf) 200 mg PO Q4H PRN PRN Reason: Cough Lisinopril/HCTZ (Prinizide 10-12.5) 1 tab PO DAILY [facility] Last Admin: 05/25/18 08:47 Dose: 1 tab Hydralazine HCl (Apresoline) 10 mg SLOW IVP Q4H PRN PRN Reason: SBP > 180 and HR < 70 Ceftriaxone Sodium 2 gm/ (Sodium Chloride) 100 mls @ 200 mls/hr IVPB 1200 [facility] Last Admin: 05/25/18 11:41 Dose: 100 mls Ketorolac Tromethamine (Toradol) 15 mg IVP Q6H PRN PRN Reason: Mild-Moderate Pain (1-5) Stop: 05/27/18 11:18 Loperamide HCl (Imodium) 2 mg PO PRN PRN PRN Reason: Diarrhea/Loose Stools Loratadine (Claritin) 10 mg PO DAILYPRN PRN PRN Reason: Sinus Symptoms Mineral Oil/White Petrolatum (Eucerin Cream) 0 gm TOP BIDPRN PRN PRN Reason: Dry Skin Morphine Sulfate (Morphine) 2 mg SLOW IVP Q4H PRN PRN Reason: BREAKTHROUGH OR SEVERE PAIN Ondansetron HCl (Zofran Odt) 4 mg PO Q6H PRN PRN Reason: Nausea/Vomiting Ondansetron HCl (Zofran) 4 mg IVP Q6H PRN PRN Reason: Nausea/Vomiting Saccharomyces Boulardii (Florastor) 250 mg PO DAILY [facility] Last Admin: 05/25/18 08:44 Dose: 250 mg Senna/Docusate Sodium (Senokot S) 2 tab PO BID PRN PRN Reason: Constipation Simvastatin (Zocor) 10 mg PO [facility] Last Admin: 05/24/18 20:16 Dose: 10 mg Sodium Chloride ([place] Nasal [place] 0.65%) 0 ml EA NARE QIDPRN PRN PRN Reason: Nasal Congestion Throat Lozenges (Cepastat Lozenges) 1 mallorie PO Q2H PRN PRN Reason: Sore Throat Tramadol HCl (Ultram) 50 mg PO TID [facility] Last Admin: 05/25/18 08:44 Dose: 50 mg Zolpidem Tartrate (Ambien) 10 mg PO [facility] Last Admin: 05/24/18 21:44 Dose: 10 mg
[2018-05-25] MEDS: Simvastatin 20 MG TAB PO SCH (21:43)
[2018-05-25] MEDS: Zolpidem Tartrate 5 MG TAB PO SCH (23:54)
[2018-05-26] MEDS: Clindamycin/D5W 900 mg/50 ml Premix Bag IVPB SCH (06:27)
[2018-05-26] MEDS: traMADol HCl 50 MG TAB PO SCH (08:22)
[2018-05-26] MEDS: Cyanocobalamin (Vitamin B-12) 1,000 MCG TAB PO SCH (08:23)
[2018-05-26] MEDS: Folic Acid 1 MG TAB PO SCH (08:23)
[2018-05-26] MEDS: Saccharomyces boulardii 250 MG CAP PO SCH (08:23)
[2018-05-26 08:31] VITALS: BP 101/57; TEMP 98.2
[2018-05-26] MEDS: Lisinopril/Hydrochlorothiazide 10 mg/12.5 mg Tablet PO SCH (08:34)
--- NOTE | 2018-05-26 12:26 | DIS ---
DATE OF ADMISSION: 05/21/2018 DATE OF DISCHARGE: 05/26/2018 PRIMARY CARE PHYSICIAN: Dr. Jay Cespedes. DISCHARGE DISPOSITION: Home. PRIMARY DISCHARGE DIAGNOSES: 1. Left lower extremity cellulitis. 2. Left knee effusion. 3. Infrapatellar bursitis of left knee/hematoma. 4. Lytic lesion of the bone on x-ray. SECONDARY DISCHARGE DIAGNOSES: 1. Macrocytic anemia. 2. Hypertension. 3. Dyslipidemia. 4. Diabetes type 2. PRIMARY PROCEDURE/OPERATION: None. RADIOLOGICAL INVESTIGATION: Ultrasound negative for any DVT. Knee x-ray showed left knee effusion. SIGNIFICANT LABORATORY DATA: WBC 7.4, hemoglobin 13.2, and platelet of 419. Sodium 138, creatinine 0.79, calcium 9.5. CRP 4.18. LFT normal. DISCHARGE MEDICATIONS: 1. Keflex 500 mg p.o. t.i.d. for 10 days. 2. Doxycycline 100 mg b.i.d. for 10 days. 3. Florastor 250 mg p.o. daily for 10 days. 4. Folic acid 1 mg daily. 5. Vitamin B12 of 1000 mcg p.o. daily. 6. Ambien 10 mg at bedtime. 7. Tramadol 50 mg t.i.d. p.r.n. 8. Zocor 10 mg p.o. at bedtime. 9. Lisinopril with hydrochlorothiazide 1 tablet p.o. daily. CONTRAINDICATION: None. CODE STATUS: Full code. INPATIENT VICE PRESIDENT OF ADVERTISING: Dr. Ward. Orthopedic physician was following while in hospital. TEST RESULTS PENDING ON DISCHARGE: None. ALLERGIES: CIPRO AND LATEX. DISCHARGE PLAN: Posthospital, the patient will follow up with Dr. Jay Cespedes in one week. The patient will make appointment with Dr. Ward in one week. HOSPITAL COURSE: An 78-year-old male, who had mechanical fall and subsequently, he had a knee swelling and he started having erythema, swelling, and tenderness in left lower extremity. He was diagnosed with cellulitis. He had ultrasound done, which was negative for any DVT. Knee x-ray showed knee effusion. He also had infrapatellar collection of fluid and that is why, we consulted Orthopedic Physician. Orthopedic was thinking that this patient most likely has hematoma and he does not need any surgery. While in hospital, we treated him with Rocephin and clindamycin. On discharge, we changed to Keflex and doxycycline. The patient does have mild improvement in his erythema. At this point, the patient does not have any tenderness. He is able to walk by himself and he is stable. We advised him to follow up with orthopedic physician for further decision. At this point, the patient wants to go home. The patient was seen and examined at bedside today. REVIEW OF SYSTEMS: All review of systems reviewed with him and negative currently. PHYSICAL EXAMINATION: VITAL SIGNS: Temperature 98.2, pulse 82, respiratory rate 18, saturation 97% on room air, blood pressure 101/57, weight 206 pounds. GENERAL: The patient is currently alert, awake, in no obvious acute distress. HEENT: Head; normocephalic and atraumatic. Eyes; pupils are round, reactive to light. Extraocular muscle intact. ENT, oropharynx within normal limits. Moist mucous membranes. No oral lesion. No pharyngeal erythema. No exudate. NECK: Supple. No JVD. No thyromegaly. No carotid bruit. No jugular venous distention. LUNGS: Clear to auscultation without any rhonchi or rales. CARDIAC: S1 and S2 regular without any murmur. ABDOMEN: Soft and benign. EXTREMITIES: No edema. Left lower extremity cellulitis, improving. The patient is medically stable for discharge. All new medication prescription sent to his pharmacy. Job ID: [id number]
== END 2018-05-26 09:10 | disposition home or self-care (01) | DRG 603 ==
LOC: ERS 09:53 → OBSVTOIN 12:10 → 2SW 12:10 → SURG B 05-22 14:16
PROVIDERS: ADMIT Internal Medicine Infectious Disease; ATTEND Internal Medicine Infectious Disease
DX: L03.116 Cellulitis of left lower limb (principal); B95.5 Unspecified streptococcus as the cause of diseases classified elsewhere; M70.42 Prepatellar bursitis, left knee; M25.462 Effusion, left knee; E11.9 Type 2 diabetes mellitus without complications; I10 Essential (primary) hypertension; E78.5 Hyperlipidemia, unspecified; Z79.899 Other long term (current) drug therapy; Z91.040 Latex allergy status; Z88.1 Allergy status to other antibiotic agents; D64.9 Anemia, unspecified; W18.30XA Fall on same level, unspecified, initial encounter; M89.9 Disorder of bone, unspecified
CPT/HCPCS: 36415; 80048; 80053; 83605; 84550; 85025; 85652; 86140; 87040; 96365; 96367; J0696; J1650; J3370; J3490; J7050

== ENCOUNTER 2023-03-30 11:07 | Inpatient (IN) | payer BC, MEDICARE ==
[~2023-03-30 11:07] MED LIST: Iopamidol-370 76% 500 ML MDV (1 ML CHARGE) ONE
[2023-03-30] MEDS ORDERED: Cefepime 2 GM VIAL ONE (11:26)
[2023-03-30 11:38] LABS: #Monocytes 0.8 thou/uL (0.11-0.59); #Neutrophils 11.3 thou/uL (1.40-6.50); %Basophils 0.2 % (0.0-1.0); %Eosinophils 0.2 % (0.0-10.0); %Lymphocytes 14.4 % (21.0-51.0); %Monocytes 5.4 % (0.0-10.0); Hematocrit 36.9 % (42.0-52.0); Hemoglobin 12.4 g/dL (14.0-18.0); Mean Corpuscular HGB CONC 33.6 g/dL (32.0-36.0); Mean Corpuscular Hemoglobin 33.3 pg (27.0-31.0); Mean Corpuscular Volume 99.2 fl (78.0-98.0); Mean Platelet Volume 9.5 fL (7.4-10.4); Platelet Count 372 10x3/uL (130-400); RBC Distribution Width 13.8 % (11.5-14.5); Red Blood Cell (RBC) Count 3.72 mill/uL (4.70-6.10); White Blood Cell (WBC) Count 14.3 10x3/uL (4.8-10.8)
[2023-03-30 11:53] LABS: INR-International Normal Ratio 2.3; Prothrombin Time 26.3 sec (12.0-14.7)
[2023-03-30 11:55] LABS: PTT 52.5 sec (22.9-36.1)
[2023-03-30] MEDS ORDERED: Vancomycin (BATCH) 1.5 GM in Premix 1 BAG IVPB SCH (12:00)
[2023-03-30 12:04] LABS: ALT (SGPT) 27 U/L (8-55); AST (SGOT) 54 U/L (5-34); Alkaline Phosphatase 84 U/L (40-110); Anion Gap 18 mmol/L (10-20); BUN (Urea Nitrogen) 46 mg/dL (8.4-25.7); Bilirubin, Total 0.7 mg/dL (0.2-1.2); Calc. Creatinine Clearance 0 mL/min (70-130); Calcium 8.3 mg/dL (7.8-10.44); Carbon Dioxide 23 mmol/L (23-31); Chloride 102 mmol/L (98-107); Estimated GFR 40; Globulin 2.1 g/dL (2.4-3.5); Glucose 94 mg/dL (83-110); Potassium 4.6 mmol/L (3.5-5.1); Protein, Total 5.1 g/dL (5.8-8.1); Sodium 138 mmol/L (136-145)
[2023-03-30] MEDS ORDERED: Ondansetron PF 4 MG/2 ML Vial IVP PRN (12:59)
[2023-03-30] MEDS ORDERED: Glucagon 1 MG/ML KIT IM PRN (13:03)
[2023-03-30] MEDS ORDERED: Dextrose 5% in Water 1,000 ML IV PRN (13:03)
[2023-03-30] MEDS ORDERED: HumaLOG 300 UNITS/3 ML VIAL SC PRN (13:03)
[2023-03-30] MEDS ORDERED: Dextrose 50% Abboject 50 ML SYRINGE SLOW IVP PRN (13:03)
[2023-03-30] MEDS: Sodium Chloride 0.9% 1,000 ML IV SCH (15:32)
[2023-03-30] MEDS: metroNIDAZOLE 500 MG in Premix 1 BAG IVPB SCH ×2 (15:32→22:10)
[2023-03-30] MEDS ORDERED: Vancomycin Dose by Levels Sliding Scale (Wt 71-99) FS SCH (15:45)
[2023-03-30] MEDS: Apixaban 5 MG TAB PO SCH (20:46)
[2023-03-30] MEDS: Cefepime 1 GM in Sodium Chloride 0.9% 100 ML IVPB SCH (20:47)
[2023-03-30] MEDS: prednisoLONE 1% Ophth Susp 5 ml Bottle L EYE SCH (20:47)
[2023-03-30] MEDS: Simvastatin 10 MG TAB PO SCH (20:47)
[2023-03-30] MEDS ORDERED: Vancomycin 1 GM in Premix 1 BAG IVPB SCH (21:00)
[2023-03-30] MEDS: ALPRAZolam 0.25 MG TAB PO PRN (23:48)
[2023-03-31] MEDS: Sodium Chloride 0.9% 1,000 ML IV SCH ×2 (02:42→14:47)
[2023-03-31 05:38] LABS: #Eosinphils 0.1 thou/uL (0.0-0.7); #Monocytes 0.7 thou/uL (0.11-0.59); #Neutrophils 7.3 thou/uL (1.40-6.50); %Basophils 0.3 % (0.0-1.0); %Eosinophils 0.8 % (0.0-10.0); %Lymphocytes 17.1 % (21.0-51.0); %Monocytes 7.4 % (0.0-10.0); %Neutrophils 73.7 % (42.0-75.0); Hematocrit 32.7 % (42.0-52.0); Hemoglobin 10.8 g/dL (14.0-18.0); Mean Corpuscular Hemoglobin 32.5 pg (27.0-31.0); Mean Corpuscular Volume 98.5 fl (78.0-98.0); Mean Platelet Volume 9.4 fL (7.4-10.4); Platelet Count 371 10x3/uL (130-400); RBC Distribution Width 13.8 % (11.5-14.5); Red Blood Cell (RBC) Count 3.32 mill/uL (4.70-6.10); White Blood Cell (WBC) Count 9.8 10x3/uL (4.8-10.8)
[2023-03-31] MEDS: Levothyroxine Sodium 75 MCG TAB PO SCH (05:59)
[2023-03-31] MEDS: metroNIDAZOLE 500 MG in Premix 1 BAG IVPB SCH ×2 (06:00→14:48)
[2023-03-31] MEDS: Cilostazol 100 MG TAB PO SCH ×2 (06:00→16:04)
[2023-03-31 06:05] LABS: Anion Gap 12 mmol/L (10-20); BUN (Urea Nitrogen) 40 mg/dL (8.4-25.7); Calc. Creatinine Clearance 51 mL/min (70-130); Calcium 7.7 mg/dL (7.8-10.44); Carbon Dioxide 23 mmol/L (23-31); Chloride 104 mmol/L (98-107); Estimated GFR 65; Glucose 85 mg/dL (83-110); Potassium 3.6 mmol/L (3.5-5.1); Sodium 135 mmol/L (136-145)
[2023-03-31] MEDS: prednisoLONE 1% Ophth Susp 5 ml Bottle L EYE SCH ×2 (08:16→20:20)
[2023-03-31] MEDS: Cefepime 1 GM in Sodium Chloride 0.9% 100 ML IVPB SCH ×2 (08:16→20:21)
[2023-03-31] MEDS: Apixaban 5 MG TAB PO SCH ×2 (08:16→20:20)
[2023-03-31 10:44] LABS: Vancomycin, Random 7.5 ug/mL (See Comment)
[2023-03-31] MEDS: Vancomycin (BATCH) 1.25 GM in Premix 1 BAG IVPB SCH (12:24)
[2023-03-31 16:23] VITALS: BMI 25.3
[2023-03-31] MEDS: HYDROcodone/Acetaminophen 5/325 mg Tablet PO PRN ×2 (16:29→22:42)
[2023-03-31] MEDS: Simvastatin 10 MG TAB PO SCH (20:19)
[2023-04-01] MEDS: Sodium Chloride 0.9% 1,000 ML IV SCH ×4 (01:41→17:49)
[2023-04-01 05:01] LABS: #Basophils 0.1 thou/uL (0.0-0.2); #Eosinphils 0.2 thou/uL (0.0-0.7); #Monocytes 0.9 thou/uL (0.11-0.59); #Neutrophils 5.4 thou/uL (1.40-6.50); %Basophils 0.6 % (0.0-1.0); %Eosinophils 2.1 % (0.0-10.0); %Monocytes 9.6 % (0.0-10.0); %Neutrophils 60.7 % (42.0-75.0); Hematocrit 32.3 % (42.0-52.0); Hemoglobin 10.5 g/dL (14.0-18.0); Mean Corpuscular HGB CONC 32.5 g/dL (32.0-36.0); Mean Corpuscular Hemoglobin 32.3 pg (27.0-31.0); Mean Corpuscular Volume 99.4 fl (78.0-98.0); Mean Platelet Volume 9.4 fL (7.4-10.4); Platelet Count 354 10x3/uL (130-400); RBC Distribution Width 14.1 % (11.5-14.5); Red Blood Cell (RBC) Count 3.25 mill/uL (4.70-6.10); White Blood Cell (WBC) Count 8.9 10x3/uL (4.8-10.8)
[2023-04-01 05:17] LABS: Anion Gap 11 mmol/L (10-20); BUN (Urea Nitrogen) 35 mg/dL (8.4-25.7); Calc. Creatinine Clearance 75 mL/min (70-130); Calcium 7.6 mg/dL (7.8-10.44); Carbon Dioxide 25 mmol/L (23-31); Chloride 106 mmol/L (98-107); Estimated GFR 89; Glucose 83 mg/dL (83-110); Potassium 3.7 mmol/L (3.5-5.1); Sodium 138 mmol/L (136-145)
[2023-04-01] MEDS: Levothyroxine Sodium 75 MCG TAB PO SCH (05:26)
[2023-04-01] MEDS: Apixaban 5 MG TAB PO SCH ×2 (08:44→20:37)
[2023-04-01] MEDS: Cilostazol 100 MG TAB PO SCH ×2 (08:44→15:33)
[2023-04-01] MEDS: HYDROcodone/Acetaminophen 5/325 mg Tablet PO PRN ×3 (08:44→20:54)
[2023-04-01] MEDS: Cefepime 1 GM in Sodium Chloride 0.9% 100 ML IVPB SCH ×2 (08:44→20:36)
[2023-04-01] MEDS: prednisoLONE 1% Ophth Susp 5 ml Bottle L EYE SCH ×2 (08:45→20:37)
[2023-04-01] MEDS: Vancomycin (BATCH) 1.25 GM in Premix 1 BAG IVPB SCH (11:20)
[2023-04-01] MEDS: Zolpidem Tartrate 5 MG TAB PO SCH ×2 (20:36→20:46)
[2023-04-01] MEDS: Simvastatin 10 MG TAB PO SCH (20:37)
[2023-04-01] MEDS: ALPRAZolam 0.25 MG TAB PO PRN (20:54)
[2023-04-02] MEDS: HYDROcodone/Acetaminophen 5/325 mg Tablet PO PRN ×2 (04:10→09:25)
[2023-04-02 05:09] LABS: #Basophils 0.1 thou/uL (0.0-0.2); #Eosinphils 0.3 thou/uL (0.0-0.7); #Monocytes 0.9 thou/uL (0.11-0.59); %Basophils 0.8 % (0.0-1.0); %Eosinophils 2.7 % (0.0-10.0); %Neutrophils 61.3 % (42.0-75.0); Hematocrit 35.3 % (42.0-52.0); Hemoglobin 11.6 g/dL (14.0-18.0); Mean Corpuscular HGB CONC 32.9 g/dL (32.0-36.0); Mean Corpuscular Hemoglobin 32.4 pg (27.0-31.0); Mean Corpuscular Volume 98.6 fl (78.0-98.0); Mean Platelet Volume 9.1 fL (7.4-10.4); Platelet Count 377 10x3/uL (130-400); Red Blood Cell (RBC) Count 3.58 mill/uL (4.70-6.10); White Blood Cell (WBC) Count 9.7 10x3/uL (4.8-10.8)
[2023-04-02] MEDS: Levothyroxine Sodium 75 MCG TAB PO SCH (05:22)
[2023-04-02 05:34] LABS: Anion Gap 11 mmol/L (10-20); BUN (Urea Nitrogen) 24 mg/dL (8.4-25.7); Calc. Creatinine Clearance 91 mL/min (70-130); Calcium 7.6 mg/dL (7.8-10.44); Carbon Dioxide 23 mmol/L (23-31); Chloride 108 mmol/L (98-107); Estimated GFR 94; Glucose 88 mg/dL (83-110); Potassium 4.2 mmol/L (3.5-5.1); Sodium 138 mmol/L (136-145)
[2023-04-02] MEDS: Sodium Chloride 0.9% 1,000 ML IV SCH (06:30)
[2023-04-02] MEDS: Cilostazol 100 MG TAB PO SCH ×2 (06:50→17:49)
[2023-04-02] MEDS ORDERED: FLU VACC QS2023(65UP)/MF59C/PF 60 MCG/0.5 ML SYRINGE IM ONE (09:00)
[2023-04-02] MEDS: Apixaban 5 MG TAB PO SCH ×2 (09:24→20:57)
[2023-04-02] MEDS: Folic Acid 1 MG TAB PO SCH (09:24)
[2023-04-02] MEDS: Saccharomyces boulardii 250 MG CAP PO SCH (09:24)
[2023-04-02] MEDS: Potassium Citrate 10 MEQ TAB PO SCH (09:25)
[2023-04-02] MEDS: prednisoLONE 1% Ophth Susp 5 ml Bottle L EYE SCH ×2 (09:25→21:02)
[2023-04-02] MEDS: Cefepime 1 GM in Sodium Chloride 0.9% 100 ML IVPB SCH (09:27)
[2023-04-02 11:57] LABS: Vancomycin, Trough 9.4 ug/mL
[2023-04-02] MEDS: HYDROcodone/Acetaminophen 7.5/325 mg Tablet PO PRN ×2 (14:48→21:09)
[2023-04-02] MEDS: Vancomycin (BATCH) 1.25 GM in Premix 1 BAG IVPB SCH (18:06)
[2023-04-02] MEDS: Zolpidem Tartrate 5 MG TAB PO SCH (20:57)
[2023-04-02] MEDS: Simvastatin 10 MG TAB PO SCH (20:57)
[2023-04-02] MEDS: Cefepime 2 GM in Sodium Chloride 0.9% 100 ML IVPB SCH (20:57)
[2023-04-02] MEDS: ALPRAZolam 0.25 MG TAB PO PRN (21:09)
[2023-04-02] MEDS: Vancomycin 1 GM in Premix 1 BAG IVPB SCH (23:36)
[2023-04-03] MEDS: Levothyroxine Sodium 75 MCG TAB PO SCH (06:54)
[2023-04-03] MEDS: Cilostazol 100 MG TAB PO SCH ×2 (06:54→16:09)
[2023-04-03] MEDS: HYDROcodone/Acetaminophen 7.5/325 mg Tablet PO PRN ×3 (06:59→17:38)
[2023-04-03] MEDS: Folic Acid 1 MG TAB PO SCH (09:10)
[2023-04-03] MEDS: Nystatin Powder 15 GM BOT TOP SCH ×2 (09:10→21:50)
[2023-04-03] MEDS: Saccharomyces boulardii 250 MG CAP PO SCH (09:10)
[2023-04-03] MEDS: Cefepime 2 GM in Sodium Chloride 0.9% 100 ML IVPB SCH ×2 (09:10→21:38)
[2023-04-03] MEDS: Potassium Citrate 10 MEQ TAB PO SCH (09:10)
[2023-04-03] MEDS: Apixaban 5 MG TAB PO SCH ×2 (09:10→21:39)
[2023-04-03] MEDS: prednisoLONE 1% Ophth Susp 5 ml Bottle L EYE SCH ×2 (09:11→21:50)
[2023-04-03] MEDS: Vancomycin 1 GM in Premix 1 BAG IVPB SCH (12:51)
[2023-04-03] MEDS: traMADol HCl 50 MG TAB PO PRN (21:39)
[2023-04-03] MEDS: Simvastatin 10 MG TAB PO SCH (21:39)
[2023-04-03] MEDS: Zolpidem Tartrate 5 MG TAB PO SCH (21:46)
[2023-04-03 23:14] LABS: Vancomycin, Trough 15.7 ug/mL
[2023-04-04] MEDS: Vancomycin 1 GM in Premix 1 BAG IVPB SCH ×2 (01:05→11:26)
[2023-04-04] MEDS: HYDROcodone/Acetaminophen 7.5/325 mg Tablet PO PRN ×4 (02:00→23:17)
[2023-04-04] MEDS: Levothyroxine Sodium 75 MCG TAB PO SCH (06:39)
[2023-04-04] MEDS: traMADol HCl 50 MG TAB PO PRN ×2 (10:29→21:30)
[2023-04-04] MEDS: Potassium Citrate 10 MEQ TAB PO SCH (10:31)
[2023-04-04] MEDS: Cefepime 2 GM in Sodium Chloride 0.9% 100 ML IVPB SCH ×2 (10:31→23:22)
[2023-04-04] MEDS: Apixaban 5 MG TAB PO SCH ×2 (10:32→21:28)
[2023-04-04] MEDS: Folic Acid 1 MG TAB PO SCH (10:32)
[2023-04-04] MEDS: Saccharomyces boulardii 250 MG CAP PO SCH (10:32)
[2023-04-04] MEDS: prednisoLONE 1% Ophth Susp 5 ml Bottle L EYE SCH ×2 (10:32→23:22)
[2023-04-04] MEDS: Nystatin Powder 15 GM BOT TOP SCH ×2 (10:33→23:20)
[2023-04-04] MEDS ORDERED: Gabapentin 100 MG CAP PO SCH (10:45)
[2023-04-04] MEDS: Cilostazol 100 MG TAB PO SCH ×2 (10:49→15:36)
[2023-04-04] MEDS: Gabapentin 100 MG CAP PO SCH (21:28)
[2023-04-04] MEDS: Simvastatin 10 MG TAB PO SCH (21:30)
[2023-04-04] MEDS: Zolpidem Tartrate 5 MG TAB PO SCH (21:30)
[2023-04-05] MEDS: Vancomycin 1 GM in Premix 1 BAG IVPB SCH ×2 (01:15→12:42)
[2023-04-05] MEDS: Levothyroxine Sodium 75 MCG TAB PO SCH (05:10)
[2023-04-05 06:40] LABS: #Basophils 0.1 thou/uL (0.0-0.2); #Eosinphils 0.4 thou/uL (0.0-0.7); #Monocytes 1.2 thou/uL (0.11-0.59); #Neutrophils 5.5 thou/uL (1.40-6.50); %Basophils 0.9 % (0.0-1.0); %Eosinophils 3.4 % (0.0-10.0); %Lymphocytes 31.3 % (21.0-51.0); %Monocytes 10.9 % (0.0-10.0); %Neutrophils 51.1 % (42.0-75.0); Hematocrit 35.4 % (42.0-52.0); Hemoglobin 11.6 g/dL (14.0-18.0); Mean Corpuscular HGB CONC 32.8 g/dL (32.0-36.0); Mean Corpuscular Hemoglobin 32.4 pg (27.0-31.0); Mean Corpuscular Volume 98.9 fl (78.0-98.0); Mean Platelet Volume 8.7 fL (7.4-10.4); Platelet Count 437 10x3/uL (130-400); RBC Distribution Width 14.2 % (11.5-14.5); Red Blood Cell (RBC) Count 3.58 mill/uL (4.70-6.10); White Blood Cell (WBC) Count 10.8 10x3/uL (4.8-10.8)
[2023-04-05 06:46] LABS: Hemoglobin A1c 5.7 % (4.0-6.0)
[2023-04-05] MEDS: Gabapentin 100 MG CAP PO SCH ×2 (08:15→20:51)
[2023-04-05] MEDS: Saccharomyces boulardii 250 MG CAP PO SCH (08:16)
[2023-04-05] MEDS: prednisoLONE 1% Ophth Susp 5 ml Bottle L EYE SCH ×2 (08:16→20:52)
[2023-04-05] MEDS: Potassium Citrate 10 MEQ TAB PO SCH (08:16)
[2023-04-05] MEDS: Cilostazol 100 MG TAB PO SCH ×2 (08:16→15:44)
[2023-04-05] MEDS: Cefepime 2 GM in Sodium Chloride 0.9% 100 ML IVPB SCH ×2 (08:16→20:50)
[2023-04-05] MEDS: Folic Acid 1 MG TAB PO SCH (08:16)
[2023-04-05] MEDS: Apixaban 5 MG TAB PO SCH (08:16)
[2023-04-05] MEDS: Nystatin Powder 15 GM BOT TOP SCH ×2 (08:17→20:53)
[2023-04-05 11:57] LABS: Vancomycin, Trough 18.7 ug/mL
[2023-04-05] MEDS: HYDROcodone/Acetaminophen 7.5/325 mg Tablet PO PRN ×2 (12:35→17:01)
[2023-04-05] MEDS: Simvastatin 10 MG TAB PO SCH (20:51)
[2023-04-05] MEDS: Zolpidem Tartrate 5 MG TAB PO SCH (22:17)
[2023-04-06] MEDS: Vancomycin 1 GM in Premix 1 BAG IVPB SCH ×3 (00:23→23:35)
[2023-04-06] MEDS: HYDROcodone/Acetaminophen 7.5/325 mg Tablet PO PRN ×5 (01:37→21:15)
[2023-04-06] MEDS: Levothyroxine Sodium 75 MCG TAB PO SCH (05:59)
[2023-04-06 07:04] LABS: Anion Gap 8 mmol/L (10-20); BUN (Urea Nitrogen) 20 mg/dL (8.4-25.7); Calc. Creatinine Clearance 84 mL/min (70-130); Calcium 8.2 mg/dL (7.8-10.44); Carbon Dioxide 30 mmol/L (23-31); Chloride 104 mmol/L (98-107); Estimated GFR 92; Glucose 90 mg/dL (83-110); Potassium 4.2 mmol/L (3.5-5.1); Sodium 138 mmol/L (136-145)
[2023-04-06] MEDS: Saccharomyces boulardii 250 MG CAP PO SCH (08:41)
[2023-04-06] MEDS: Gabapentin 100 MG CAP PO SCH ×2 (08:41→21:04)
[2023-04-06] MEDS: Potassium Citrate 10 MEQ TAB PO SCH (08:42)
[2023-04-06] MEDS: Folic Acid 1 MG TAB PO SCH (08:42)
[2023-04-06] MEDS: prednisoLONE 1% Ophth Susp 5 ml Bottle L EYE SCH ×2 (08:43→21:04)
[2023-04-06] MEDS: Cilostazol 100 MG TAB PO SCH ×2 (08:43→16:28)
[2023-04-06] MEDS: Nystatin Powder 15 GM BOT TOP SCH ×2 (08:43→21:04)
[2023-04-06] MEDS: Cefepime 2 GM in Sodium Chloride 0.9% 100 ML IVPB SCH ×2 (09:01→21:03)
[2023-04-06] MEDS: Sodium Chloride 0.9% 100 ML ONE ×2 (09:01→10:30)
[2023-04-06] MEDS ORDERED: Polyethylene Glycol 3350 17 GM Packet PO SCH (15:15)
[2023-04-06] MEDS: Simvastatin 10 MG TAB PO SCH (21:02)
[2023-04-06] MEDS: Senokot S 8.6-50 MG TAB PO SCH (21:03)
[2023-04-06] MEDS: Zolpidem Tartrate 5 MG TAB PO SCH (22:13)
[2023-04-07] MEDS: Levothyroxine Sodium 75 MCG TAB PO SCH (05:47)
[2023-04-07] MEDS: Folic Acid 1 MG TAB PO SCH (08:30)
[2023-04-07] MEDS: Saccharomyces boulardii 250 MG CAP PO SCH (08:30)
[2023-04-07] MEDS: Gabapentin 100 MG CAP PO SCH ×2 (08:30→21:12)
[2023-04-07] MEDS: Senokot S 8.6-50 MG TAB PO SCH ×2 (08:31→21:13)
[2023-04-07] MEDS: Potassium Citrate 10 MEQ TAB PO SCH (08:31)
[2023-04-07] MEDS: Cilostazol 100 MG TAB PO SCH ×2 (08:31→17:07)
[2023-04-07] MEDS: Cefepime 2 GM in Sodium Chloride 0.9% 100 ML IVPB SCH ×2 (08:31→21:11)
[2023-04-07] MEDS: Nystatin Powder 15 GM BOT TOP SCH ×2 (08:32→21:14)
[2023-04-07] MEDS: prednisoLONE 1% Ophth Susp 5 ml Bottle L EYE SCH ×2 (08:32→21:12)
[2023-04-07] MEDS: Polyethylene Glycol 3350 17 GM Packet PO SCH (08:38)
[2023-04-07] MEDS: Apixaban 5 MG TAB PO SCH ×2 (09:30→21:12)
[2023-04-07] MEDS: HYDROcodone/Acetaminophen 7.5/325 mg Tablet PO PRN ×2 (11:10→21:11)
[2023-04-07] MEDS: Vancomycin 1 GM in Premix 1 BAG IVPB SCH (12:31)
[2023-04-07] MEDS: Simvastatin 10 MG TAB PO SCH (21:12)
[2023-04-07] MEDS: Zolpidem Tartrate 5 MG TAB PO SCH (22:18)
[2023-04-08] MEDS: Vancomycin 1 GM in Premix 1 BAG IVPB SCH (00:22)
[2023-04-08] MEDS: Levothyroxine Sodium 75 MCG TAB PO SCH (05:52)
[2023-04-08 05:57] LABS: #Basophils 0.1 thou/uL (0.0-0.2); #Eosinphils 0.4 thou/uL (0.0-0.7); #Neutrophils 5.7 thou/uL (1.40-6.50); %Basophils 0.8 % (0.0-1.0); %Eosinophils 3.8 % (0.0-10.0); %Lymphocytes 30.6 % (21.0-51.0); %Monocytes 9.7 % (0.0-10.0); %Neutrophils 53.7 % (42.0-75.0); Hematocrit 32.9 % (42.0-52.0); Hemoglobin 10.8 g/dL (14.0-18.0); Mean Corpuscular HGB CONC 32.8 g/dL (32.0-36.0); Mean Corpuscular Hemoglobin 33.2 pg (27.0-31.0); Mean Corpuscular Volume 101.2 fl (78.0-98.0); Mean Platelet Volume 8.6 fL (7.4-10.4); Platelet Count 450 10x3/uL (130-400); RBC Distribution Width 14.4 % (11.5-14.5); Red Blood Cell (RBC) Count 3.25 mill/uL (4.70-6.10); White Blood Cell (WBC) Count 10.6 10x3/uL (4.8-10.8)
[2023-04-08] MEDS: HYDROcodone/Acetaminophen 7.5/325 mg Tablet PO PRN ×4 (06:01→21:58)
[2023-04-08 06:27] LABS: Anion Gap 11 mmol/L (10-20); BUN (Urea Nitrogen) 22 mg/dL (8.4-25.7); Calc. Creatinine Clearance 79 mL/min (70-130); Calcium 8.4 mg/dL (7.8-10.44); Carbon Dioxide 30 mmol/L (23-31); Chloride 102 mmol/L (98-107); Estimated GFR 90; Glucose 87 mg/dL (83-110); Potassium 4.3 mmol/L (3.5-5.1); Sodium 139 mmol/L (136-145)
[2023-04-08] MEDS: Cefepime 2 GM in Sodium Chloride 0.9% 100 ML IVPB SCH (08:41)
[2023-04-08] MEDS: Cilostazol 100 MG TAB PO SCH ×2 (08:42→15:48)
[2023-04-08] MEDS: Apixaban 5 MG TAB PO SCH ×2 (08:42→19:59)
[2023-04-08] MEDS: Saccharomyces boulardii 250 MG CAP PO SCH (08:42)
[2023-04-08] MEDS: Senokot S 8.6-50 MG TAB PO SCH ×2 (08:42→19:58)
[2023-04-08] MEDS: Gabapentin 100 MG CAP PO SCH ×2 (08:43→19:58)
[2023-04-08] MEDS: Folic Acid 1 MG TAB PO SCH (08:45)
[2023-04-08] MEDS: Polyethylene Glycol 3350 17 GM Packet PO SCH (08:45)
[2023-04-08] MEDS: Nystatin Powder 15 GM BOT TOP SCH ×2 (08:54→21:59)
[2023-04-08] MEDS: prednisoLONE 1% Ophth Susp 5 ml Bottle L EYE SCH ×2 (08:54→20:04)
[2023-04-08] MEDS: Potassium Citrate 10 MEQ TAB PO SCH (08:55)
[2023-04-08 11:22] LABS: Vancomycin, Trough 24.4 ug/mL
[2023-04-08] MEDS ORDERED: Vancomycin 1 GM in Premix 1 BAG IVPB SCH (11:45)
[2023-04-08] MEDS: traMADol HCl 50 MG TAB PO PRN ×2 (12:18→19:59)
[2023-04-08] MEDS ORDERED: FLU VACC QS2023-24(6MOS UP)/PF 60 MCG/0.5 ML SYRINGE IM ONE (17:09)
[2023-04-08] MEDS: Simvastatin 10 MG TAB PO SCH ×2 (19:58→20:00)
[2023-04-08] MEDS ORDERED: Linezolid 600 MG TAB PO SCH (21:00)
[2023-04-08] MEDS: Zolpidem Tartrate 5 MG TAB PO SCH (22:30)
[2023-04-08] MEDS ORDERED: Vancomycin HCl 750 MG in Sodium Chloride 0.9% 250 ML 250 ML IVPB SCH (23:59)
[2023-04-09 04:01] VITALS: TEMP 98.2
[2023-04-09] MEDS: Levothyroxine Sodium 75 MCG TAB PO SCH (05:20)
[2023-04-09 08:01] VITALS: BP 107/60
[2023-04-09] MEDS: Cilostazol 100 MG TAB PO SCH (08:29)
[2023-04-09] MEDS: Saccharomyces boulardii 250 MG CAP PO SCH (08:30)
[2023-04-09] MEDS: Apixaban 5 MG TAB PO SCH (08:30)
[2023-04-09] MEDS: Folic Acid 1 MG TAB PO SCH (08:31)
[2023-04-09] MEDS: Gabapentin 100 MG CAP PO SCH (08:31)
[2023-04-09] MEDS: Senokot S 8.6-50 MG TAB PO SCH (08:31)
[2023-04-09] MEDS: prednisoLONE 1% Ophth Susp 5 ml Bottle L EYE SCH (08:32)
[2023-04-09] MEDS: Potassium Citrate 10 MEQ TAB PO SCH (08:32)
[2023-04-09] MEDS: Nystatin Powder 15 GM BOT TOP SCH (08:33)
[2023-04-09] MEDS ORDERED: Polyethylene Glycol 3350 17 GM Packet PO SCH (09:00)
[2023-04-09] MEDS: HYDROcodone/Acetaminophen 7.5/325 mg Tablet PO PRN (09:26)
== END 2023-04-09 10:05 | disposition short-term general hospital (02) | DRG 872 ==
LOC: ERS 11:07 → MSONC 12:21
PROVIDERS: ADMIT Internal Medicine; ATTEND Internal Medicine
DX: A41.9 Sepsis, unspecified organism (principal); L03.116 Cellulitis of left lower limb; N17.9 Acute kidney failure, unspecified; N18.9 Chronic kidney disease, unspecified; Z91.040 Latex allergy status; Z88.1 Allergy status to other antibiotic agents; I12.9 Hypertensive chronic kidney disease with stage 1 through stage 4 chronic kidney disease, or unspecified chronic kidney disease; Z98.890 Other specified postprocedural states; Z90.49 Acquired absence of other specified parts of digestive tract; E11.22 Type 2 diabetes mellitus with diabetic chronic kidney disease; Z79.899 Other long term (current) drug therapy; Z79.01 Long term (current) use of anticoagulants; N47.1 Phimosis; Z79.4 Long term (current) use of insulin; N50.89 Other specified disorders of the male genital organs; K59.00 Constipation, unspecified; E03.9 Hypothyroidism, unspecified; E78.5 Hyperlipidemia, unspecified; E11.51 Type 2 diabetes mellitus with diabetic peripheral angiopathy without gangrene; I73.9 Peripheral vascular disease, unspecified; N48.6 Induration penis plastica
CPT/HCPCS: 36415; 36416; 70450; 71045; 72125; 80048; 80053; 80202; 83036; 83605; 84443; 85025; 85610; 85730; 86140; 87040; 87081; 90471; 90686; 93005; 94760; 96365; 96366; 96375; 97139; G0008; J0692; J1815; J3370; J3370-JW; J3490; J7050; Q9967